=== PATIENT | female | born 1955 ===

== ENCOUNTER 2023-06-10 12:22 | Day surgery (SDC) | payer MEDICARE, MEDICAID ==
[~2023-06-10 12:22] MED LIST: Metoclopramide 10 MG/2 ML SDV IV PRN; Sodium Chloride 0.9% 1,000 ML IV SCH
[2023-06-10 16:07] VITALS: BP 97/65; PULSE 72
== END 2023-06-10 16:49 | disposition home or self-care (01) ==
LOC: LB.SDS 12:22
PROVIDERS: ATTEND Surgery
DX: Z12.11 Encounter for screening for malignant neoplasm of colon (principal)
CPT/HCPCS: G0121; J7030